=== PATIENT | female | born 1960 | race Two or more races ===

== ENCOUNTER 2019-02-13 12:10 | Emergency (ER) | payer OTHER ==
[~2019-02-13] VITALS: Ht 172.7 cm; Wt 65.8 kg
[2019-02-13] MEDS ORDERED: VOLTAREN-XR100 MG PO (16:07)
[2019-02-13] MEDS ORDERED: SKELAXIN800 MG PO (16:07)
== END 2019-02-13 17:53 | disposition home or self-care (01) ==
LOC: ER 12:10
DX: G44.209 Tension-type headache, unspecified, not intractable (principal); R51 Headache

== ENCOUNTER 2019-02-17 11:29 | Emergency (ER) | payer OTHER ==
[~2019-02-17] VITALS: Ht 172.7 cm; Wt 65.8 kg
[~2019-02-17 11:29] MED LIST: SKELAXIN800 MG PO; VOLTAREN-XR100 MG PO
[2019-02-17] MEDS ORDERED: INTESTINEX680 M1 PO (15:25)
== END 2019-02-17 16:21 | disposition home or self-care (01) ==
LOC: ER 11:29
DX: R19.7 Diarrhea, unspecified (principal); E86.0 Dehydration

== ENCOUNTER → 2019-03-18 | Emergency (ER) | payer OTHER ==
[~2019-03-18] VITALS: Ht 172.7 cm; Wt 65.8 kg
[~2019-03-18] MED LIST changes: +INTESTINEX680 M1 PO; +KETO10TA2 PO; +NORFLEX100MG; +ORPHENADRINE C100 MG PO
== END | disposition home or self-care (01) ==
LOC: ER 02:21
DX: M94.0 Chondrocostal junction syndrome [Tietze] (principal)